=== PATIENT | female | born 1965 | race Two or more races ===

== ENCOUNTER 2017-07-09 05:21 | Day surgery (SDC) | payer BC ==
--- NOTE | 2017-07-07 11:47 | RADIOLOGY REPORT (SQ) ---
EXAM DESCRIPTION: CHEST PA/LATERAL COMPLETED DATE/TIME: 07/07/2017 11:40 am REASON FOR STUDY: PRE OP COMPARISON: None. EXAM PARAMETERS: NUMBER OF VIEWS: two views TECHNIQUE: Digital Frontal and Lateral radiographic views of the chest acquired. RADIATION DOSE: NA LIMITATIONS: none FINDINGS: LUNGS AND PLEURA: No opacities, masses or pneumothorax. No pleural effusion. MEDIASTINUM AND HILAR STRUCTURES: No masses or contour abnormalities. HEART AND VASCULAR STRUCTURES: Heart normal size. No evidence for failure. BONES: No acute changes. Mild convex rightward thoracic curvature HARDWARE: None in the chest. OTHER: No other significant finding. IMPRESSION: NO SIGNIFICANT RADIOGRAPHIC FINDING IN THE CHEST. TECHNICAL DOCUMENTATION: JOB ID: [id number] [employer]- All Rights Reserved
[2017-07-07 12:21] LABS: MEAN CORPUSCULAR HEMOGLOBIN 22.8 pg (27.0-33.4); MEAN CORPUSCULAR HGB CONC 31.3 g/dL (32.0-36.0); MEAN CORPUSCULAR VOLUME 73 fl (80-97); RED BLOOD COUNT 4.81 10^6/uL (3.72-5.28); WHITE BLOOD COUNT 8.4 10^3/uL (4.0-10.5)
[2017-07-07 12:21] LABS: APPEARANCE,URINE SLIGHTLY-CLOUDY; BILIRUBIN,URINE NEGATIVE (NEGATIVE); GLUCOSE, URINE NEGATIVE (NEGATIVE); KETONES,URINE NEGATIVE (NEGATIVE); LEUKOCYTE ESTERASE,URINE NEGATIVE (NEGATIVE); NITRITE,URINE NEGATIVE (NEGATIVE); PROTEIN,URINE NEGATIVE (NEGATIVE); URINE SPECIFIC GRAVITY 1.016; UROBILINOGEN,URINE NEGATIVE mg/dL (<2.0)
--- NOTE | 2017-07-07 12:46 | EKG REPORT ---
SEVERITY:- ABNORMAL ECG - SINUS RHYTHM NONSPECIFIC T ABNORMALITIES, ANTERIOR LEADS : Confirmed by: Silvia Garcia 07-Jul-2017 12:45:17
[2017-07-07 12:56] LABS: ANION GAP 12 (5-19); BLOOD UREA NITROGEN 12 mg/dL (7-20); CALCIUM 9.5 mg/dL (8.4-10.2); CARBON DIOXIDE 26 mmol/L (22-30); CHLORIDE 104 mmol/L (98-107); CREATININE RESULT 0.68 mg/dL (0.52-1.25); GLUCOSE 81 mg/dL (75-110); POTASSIUM 4.4 mmol/L (3.6-5.0); SODIUM 142.2 mmol/L (137-145)
[~2017-07-09 05:21] MED LIST: CEFAZOLIN 1 GM/D5W RTU 1 GM/50 ML RTUPB IV PRN; LACTATED RINGERS 1000 ML IV PRN; LIDOCAINE 0.5% INJ-PF (5 MG/ML) 50 ML SDV SUBCUT PRN
[2017-07-09] MEDS ORDERED: MIDAZOLAM 2 MG/2 ML INJ ONE (06:57)
[2017-07-09] MEDS ORDERED: FENTANYL CITRATE INJ/PF 100 MCG/2 ML AMPUL ONE ×2 (06:57→08:07)
[2017-07-09] MEDS ORDERED: ONDANSETRON HCL INJ/PF 4 MG/2 ML SDV ONE (06:58)
[2017-07-09] MEDS ORDERED: PROPOFOL INJ 200 MG/20 ML VIAL IV ONE (06:58)
[2017-07-09] MEDS ORDERED: PROMETHAZINE HCL INJ 25 MG/1 ML VIAL IV PRN (07:37)
[2017-07-09] MEDS ORDERED: FENTANYL CITRATE INJ/PF 100 MCG/2 ML AMPUL IV PRN ×3 (07:37)
[2017-07-09] MEDS ORDERED: DIPHENHYDRAMINE HCL 50 MG/ML VIAL IV PRN (07:37)
[2017-07-09] MEDS ORDERED: MEPERIDINE HCL/PF INJ 25 MG/1 ML DISP.SYRIN IV PRN (07:37)
[2017-07-09] MEDS ORDERED: IBUPROFEN 800 MG TABLET ONE (08:51)
--- NOTE | 2017-07-09 09:44 | OPERATIVE REPORT E ---
Operative Report NAME: GHASSAN HERNANDEZ : 1965 AGE: 52Y DATE OF SURGERY: 07/09/2017 ROOM: PREOPERATIVE DIAGNOSES: 1. Postmenopausal bleeding. 2. Uterine leiomyoma. POSTOPERATIVE DIAGNOSES: 1. Postmenopausal bleeding. 2. Uterine leiomyoma. 3. Submucous fibroid. PROCEDURE: Hysteroscopic myomectomy. SURGEON: ZACKARY RAINEY M.D. ANESTHESIA: LMA. COMPLICATIONS: None. FINDINGS: An approximately 15 mm submucous fibroid. Uterus sounded to approximately 8 cm. No other lesions were noted. Normal tubal ostia appreciated. EUA demonstrated no masses, limited by obesity. Bladder was left undrained. INDICATIONS FOR PROCEDURE: Patient has had an episode of postmenopausal bleeding. Outpatient biopsy demonstrated endocervix only. It was elected to proceed to a hysteroscopy for further assessment and pathology for possible treatment. The usual risks of bleeding, infection, anesthesia, damage to organs or tissues were discussed with the patient who understood. PROCEDURE: Patient was taken to the operating room and placed in a modified lithotomy position. After adequate anesthesia was ascertained, she was prepped and draped in the usual manner for a hysteroscopy. After adequate anesthesia was appreciated, a single-tooth tenaculum was placed on the anterior lip of the cervix. After EUA was done the uterus was sounded. Hysteroscopy ensued. A fibroid was appreciated submucous, deviated somewhat to the right of the uterine cavity. MyoSure device was deployed. The lesion was removed en toto. Good hemostasis was noted at the completion of the procedure. Gentle curettage with the MyoSure device was performed throughout, help desk representative of the other quadrants of the uterus. Bleeding was nil at the completion of the procedure. Instruments were removed. The patient was taken to the recovery room in stable condition. DICTATING PHYSICIAN: ZACKARY RAINEY M.D. [id number] PHY#: [id number] ID: [id number] JOB#: [id number] ACCT: [id number] cc:ZACKARY RAINEY M.D. >
[2017-07-09 09:48] VITALS: BP 116/71
== END 2017-07-09 09:45 | disposition home or self-care (01) ==
LOC: OROUT 05:21
PROVIDERS: ATTEND Specialist
PROC: 0UB94ZZ Excision of Uterus, Percutaneous Endoscopic Approach (ICD-10-PCS; principal; 2017-07-09 07:15)
DX: D25.0 Submucous leiomyoma of uterus (principal); N95.0 Postmenopausal bleeding; N80.0 Endometriosis of uterus; K21.9 Gastro-esophageal reflux disease without esophagitis; E66.9 Obesity, unspecified; D64.9 Anemia, unspecified; Z68.41 Body mass index [BMI] 40.0-44.9, adult; Z79.899 Other long term (current) drug therapy
CPT/HCPCS: 93005; 36415; 85027; 81025; 80048; 81001; 88305 ×2; 71020; 93010; 58545; J2250; J0690; J3010; J2405; J2704; 952

== ENCOUNTER 2018-06-05 09:58 | Emergency (ER) | payer BC ==
[2018-06-05] MEDS ORDERED: IBUPROFEN 600 MG TABLET PO ONE (10:29)
--- NOTE | 2018-06-05 10:31 | ER Document Report ---
ED General - General Chief Complaint: Abdominal Pain Stated Complaint: ABDOMINAL PAIN Time Seen by Provider: 06/05/18 10:11 TRAVEL OUTSIDE OF THE [place] IN LAST 30 DAYS: No - HPI Notes: Patient is a 53-year-old female that presents to the emergency department for chief complaint of suprapubic abdominal pain and dysuria. Patient reports sharp suprapubic abdominal pain for the last 4 days. The pain is constant but has periods of waxing and waning. It is worse with urination. She reports associated dysuria. She denies history of urinary tract infections in the past. She denies any nausea, vomiting, diarrhea, constipation and fevers. She took ibuprofen yesterday which gave her relief of her symptoms. Past Medical History: GERD Past Surgical History: , cholecystectomy Social History: Denies drugs alcohol and tobacco Family History: Reviewed and noncontributory for presenting illness Allergies: Reviewed, see documented allergy list. REVIEW OF SYSTEMS: CONSTITUTIONAL : No fever No chills No diaphoresis No recent illness EENT: No vision changes No congestion No sore throat CARDIOVASCULAR: No chest pain No palpitations RESPIRATORY: No shortness of breath No cough No difficulty breathing GASTROINTESTINAL: abdominal pain No nausea No vomiting No diarrhea GENITOURINARY: dysuria No hematuria No difficulty urinating MUSCULOSKELETAL: No back pain No leg pain No arm pain SKIN: No rashes No lesions LYMPHATIC: No swollen, enlarged glands. NEUROLOGICAL: No lightheadedness No headache No weakness No paresthesias PSYCHIATRIC: No anxiety No depression PHYSICAL EXAMINATION: Vital signs reviewed, nursing noted reviewed. GENERAL: Well-appearing, well-nourished and in no acute distress. HEAD: Atraumatic, normocephalic. EYES: Eyes appear normal, extraocular movements intact, sclera anicteric, conjunctiva are normal. ENT: nares patent, oropharynx clear without exudates. Moist mucous membranes. NECK: Normal range of motion, supple without lymphadenopathy LUNGS: Breath sounds clear to auscultation bilaterally and equal. No wheezes rales or rhonchi. HEART: Regular rate and rhythm without murmurs ABDOMEN: Soft, nontender, normoactive bowel sounds. No rebound, guarding, or rigidity. No masses appreciated. EXTREMITIES: Nontender, good range of motion, no pitting or edema. NEUROLOGICAL: No focal neurological deficits. Moves all extremities spontaneously Motor and sensory grossly intact on exam. PSYCH: Normal mood, normal affect. SKIN: Warm, Dry, normal turgor, no rashes or lesions noted on exposed skin - Related Data Allergies/Adverse Reactions: No Known Allergies Allergy (Verified 06/05/18 09:59) Past Medical History - Social History Smoking Status: Unknown if Ever Smoked Family History: Reviewed & Not Pertinent Patient has suicidal ideation: No Patient has homicidal ideation: No - Past Medical History Cardiac Medical History: Denies: Hx Coronary Artery Disease, Hx Heart Attack, Hx Hypertension Pulmonary Medical History: Denies: Hx Asthma, Hx Bronchitis, Hx COPD, Hx Pneumonia Neurological Medical History: Denies: Hx Cerebrovascular Accident, Hx Seizures Renal/ Medical History: Denies: Hx Peritoneal Dialysis Musculoskeletal Medical History: Denies Hx Arthritis - Immunizations Hx Diphtheria, Pertussis, Tetanus Vaccination: Yes Review of Systems - Review of Systems Notes: Dictated Physical Exam - Vital signs Vitals: Temp Pulse Resp BP Pulse Ox 98.1 F 75 16 144/84 H 98 06/05/18 10:03 06/05/18 10:03 06/05/18 10:03 06/05/18 10:03 06/05/18 10:03 - Notes Notes: Dictated Course - Re-evaluation Re-evalutation: 06/05/18 10:31 Vitals reviewed. Nursing notes reviewed. Patient given ibuprofen for symptomatic management. 06/05/18 14:14 On reevaluation patient had improvement of her pain after ibuprofen stating that it was almost completely resolved. Her lab work is unremarkable. There is no signs of renal insufficiency. Ultrasound shows no ovarian torsion or abscess. Urinalysis negative for infection. Patient will be discharged home in stable condition. She will be referred to gynecology for follow-up. Counseled on return precautions and verbalized understanding. All questions answered. Laboratory 06/05/18 06/05/18 06/05/18 10:25 11:52 11:52 WBC 10.5 RBC 5.09 Hgb 11.6 L Hct 37.6 MCV 74 L MCH 22.8 L MCHC 30.9 L RDW 17.9 H Plt Count 290 Seg Neutrophils % 74.9 Lymphocytes % 15.8 Monocytes % 6.5 Eosinophils % 2.0 Basophils % 0.8 Absolute Neutrophils 7.9 Absolute Lymphocytes 1.7 Absolute Monocytes 0.7 Absolute Eosinophils 0.2 Absolute Basophils 0.1 Sodium 143.7 Potassium 5.0 Chloride 102 Carbon Dioxide 28 Anion Gap 14 BUN 12 Creatinine 0.62 Est GFR ( Amer) > 60 Est GFR (Non-Af Amer) > 60 Glucose 95 Calcium 9.8 Urine Color STRAW Urine Appearance CLEAR Urine pH 7.0 Ur Specific [place] 1.009 Urine Protein NEGATIVE Urine Glucose (UA) NEGATIVE Urine Ketones NEGATIVE Urine Blood NEGATIVE Urine Nitrite NEGATIVE Urine Bilirubin NEGATIVE Urine Urobilinogen NEGATIVE Ur Leukocyte Esterase NEGATIVE Urine WBC (Auto) 0 Urine RBC (Auto) 0 Urine Bacteria (Auto) TRACE Squamous Epi Cells Auto 1 Urine Ascorbic Acid NEGATIVE Pelvis Ultrasound 06/05/18 11:29 IMPRESSION: NORMAL PELVIC ULTRASOUND BY TRANSABDOMINAL TECHNIQUE. - Vital Signs Vital signs: Temp Pulse Resp BP Pulse Ox 98.1 F 75 16 144/84 H 98 06/05/18 10:03 06/05/18 10:03 06/05/18 10:03 06/05/18 10:03 06/05/18 10:03 - Laboratory Result Diagrams: 06/05/18 11:52 06/05/18 11:52 Laboratory results interpreted by me: 06/05/18 11:52 Hgb 11.6 L MCV 74 L MCH 22.8 L MCHC 30.9 L RDW 17.9 H Discharge - Discharge Clinical Impression: Abdominal pain Qualifiers: Abdominal location: lower abdomen, unspecified Qualified Code(s): R10.30 - Lower abdominal pain, unspecified Condition: Stable Disposition: HOME, SELF-CARE Instructions: Abdominal Pain ([facility]) Additional Instructions: Please return to the emergency department if you have any worsening, or concern of your symptoms. Please return to the emergency department if you develop chest pain, difficulty breathing, severe abdominal pain, or ongoing vomiting. Please follow-up with your primary care physician in 2-3 days and any other recommended physicians. If prescribed, take all medications as directed. If you have any questions or concerns do not hesitate to return the emergency department for evaluation. [] Referrals: LISETH WRIGHT MD [Primary Care Provider] - Follow up as needed [facility] [Provider Group] - Follow up in 1 week
[2018-06-05 10:56] LABS: APPEARANCE,URINE CLEAR; BILIRUBIN,URINE NEGATIVE (NEGATIVE); COLOR,URINE STRAW; GLUCOSE, URINE NEGATIVE (NEGATIVE); KETONES,URINE NEGATIVE (NEGATIVE); LEUKOCYTE ESTERASE,URINE NEGATIVE (NEGATIVE); NITRITE,URINE NEGATIVE (NEGATIVE); PROTEIN,URINE NEGATIVE (NEGATIVE); URINE SPECIFIC GRAVITY 1.009; UROBILINOGEN,URINE NEGATIVE mg/dL (<2.0)
[2018-06-05 12:09] LABS: ABSOLUTE BASOPHILS # (AUTO) 0.1 10^3/uL (0.0-0.2); ABSOLUTE EOSINOPHILS # (AUTO) 0.2 10^3/uL (0.0-0.6); ABSOLUTE LYMPHOCYTES (AUTO) 1.7 10^3/uL (0.5-4.7); ABSOLUTE MONOCYTES (AUTO) 0.7 10^3/uL (0.1-1.4); ABSOLUTE NEUT (AUTO) 7.9 10^3/uL (1.7-8.2); BASOPHILS % (AUTO) 0.8 % (0-2); HEMATOCRIT 37.6 % (36.0-47.0); HEMOGLOBIN 11.6 g/dL (12.0-15.5); LYMPHOCYTES % (AUTO) 15.8 % (13-45); MEAN CORPUSCULAR HEMOGLOBIN 22.8 pg (27.0-33.4); MEAN CORPUSCULAR HGB CONC 30.9 g/dL (32.0-36.0); MEAN CORPUSCULAR VOLUME 74 fl (80-97); MONOCYTES % (AUTO) 6.5 % (3-13); PLATELET COUNT 290 10^3/uL (150-450); RED BLOOD COUNT 5.09 10^6/uL (3.72-5.28); RED CELL DISTRIBUTION WIDTH 17.9 % (11.5-14.0); SEGMENTED NEUTROPHILS % (AUTO) 74.9 % (42-78); TOTAL CELLS COUNTED % (AUTO) 100 %; WHITE BLOOD COUNT 10.5 10^3/uL (4.0-10.5)
[2018-06-05 12:18] LABS: ANION GAP 14 (5-19); BLOOD UREA NITROGEN 12 mg/dL (7-20); CALCIUM 9.8 mg/dL (8.4-10.2); CARBON DIOXIDE 28 mmol/L (22-30); CHLORIDE 102 mmol/L (98-107); GLUCOSE 95 mg/dL (75-110); SODIUM 143.7 mmol/L (137-145)
--- NOTE | 2018-06-05 14:04 | RADIOLOGY REPORT (SQ) ---
EXAM DESCRIPTION: U/S NON OB PEL W/DOPPLER COMPLETED DATE/TIME: 06/05/2018 12:27 pm REASON FOR STUDY: pelvic pain COMPARISON: None. TECHNIQUE: Dynamic and static grayscale images acquired of the pelvis via transabdominal approach an d recorded on PACS. Additional selected color Doppler and spectral images recorded. LIMITATIONS: None. FINDINGS: UTERUS: Contour normal. No mass. ENDOMETRIAL STRIPE: No focal or generalized thickening. No masses. CERVIX: No nabothian cysts. RIGHT OVARY AND DOPPLER: Ovary not visualized. LEFT OVARY AND DOPPLER: Normal size. No worrisome masses. Normal arterial vascular flow without evide nce for torsion. FREE FLUID: None noted. OTHER: No other significant finding. MEASUREMENTS: UTERUS: 10.0 x 4.5 x 5.9 cm ENDOMETRIAL STRIPE: 3 mm RIGHT OVARY: Not visualize LEFT OVARY: 3.9 x 2.1 x 4.1 cm IMPRESSION: NORMAL PELVIC ULTRASOUND BY TRANSABDOMINAL TECHNIQUE. TECHNICAL DOCUMENTATION: JOB ID: [id number] [employer]- All Rights Reserved Rev-12/11 Reading location - IP/workstation name: [email or web address]
[2018-06-05 14:28] VITALS: BP 110/67
== END 2018-06-05 14:26 | disposition home or self-care (01) ==
LOC: ER 09:58
DX: R10.30 Lower abdominal pain, unspecified (principal); R30.0 Dysuria; K21.9 Gastro-esophageal reflux disease without esophagitis
CPT/HCPCS: 36415; 76856; 80048; 81001; 85025; 93976; 99284